=== PATIENT | male | born 1995 | race Caucasian/White ===

== ENCOUNTER 2017-12-29 06:38 | Emergency (ER) | payer BC, MEDICAID, OTHER ==
[~2017-12-29] VITALS: Ht 177.8 cm; Wt 104.3 kg
[2017-12-29] MEDS ORDERED: PROMETHAZINE HCL 25 MG/ML 1ML IV ONE (07:00)
[2017-12-29] MEDS ORDERED: SODIUM CHLORIDE 0.9% 1,000 ML IV ONE ×2 (07:00→10:29)
[2017-12-29 07:15] VITALS: BP 135/78
[2017-12-29 07:26] LABS: Basophils # (auto) 0 uL; Eosinophils # (auto) 0 uL; Hematocrit 53.4 % (41.0-53.0); Hemoglobin 18.9 g/dL (13.5-17.5); Lymphocytes # (auto) 0.4 uL; Mean Corpuscular Hemoglobin 30.6 pg (28.0-32.0); Monocytes # (auto) 0.6 uL; Neutrophils # (auto) 9.5 uL; Red Cell Distribution Width 13.2 % (11.8-14.3)
[2017-12-29 07:29] LABS: Basophils % (auto) 0.3 % (0.0-2.0); Eosinophils % (auto) 0.2 % (0.0-7.0); Lymphocytes % (auto) 3.9 % (10.0-50.0); Mean Corpuscular Hgb Conc. 35.4 g/dL (32.0-36.0); Mean Corpuscular Volume 86.4 fL (80.0-100.0); Monocytes % (auto) 5.2 % (0.0-12.0); Neutrophils % (auto) 90.4 % (37.0-80.0); Nucleated Red Blood Cells % 0.5 %; Platelet Count (auto) 270 10^3/uL (140-450); Red Blood Cells 6.18 10^6/uL (4.5-5.90); White Blood Cell 10.5 10^3/uL (4.4-10.8)
[2017-12-29 07:35] LABS: Albumin 4.8 g/dL (3.4-5.0); BUN/Creatinine Ratio 12.2; Calcium 9.6 mg/dL (8.5-10.1); Potassium 4.3 mmol/L (3.5-5.1)
[2017-12-29 07:38] LABS: Bilirubin, Total 1.5 mg/dL (0.2-1.0)
[2017-12-29 07:47] LABS: INR 1.11 (0.9-1.15); Partial Thromboplastin Time 27.5 sec (23.78-33.04); Prothrombin Time 11.8 sec (9.27-12.13)
[2017-12-29] MEDS ORDERED: KETOROLAC TROMETH 30 MG/ML 1ML VIAL IV ONE (08:15)
[2017-12-29 10:11] LABS: Urine Bacteria NONE SEEN /hpf (None Seen); Urine Blood Negative /uL (Negative); Urine Mucus FEW (None Seen); Urine Specific Gravity 1.029 (1.001-1.035); Urine WBC 3 /hpf (0 - 3)
[2017-12-29 10:20] LABS: Amphetamine Screen, Urine NEGATIVE (NEGATIVE); Barbiturate Scree,Urine NEGATIVE (NEGATIVE); Benzodiazephine Screen, Urine NEGATIVE (NEGATIVE); Cannabinoid Screen, Urine NEGATIVE (NEGATIVE); Cocaine Screen, Urine NEGATIVE (NEGATIVE); Opiate Scree,Urine NEGATIVE (NEGATIVE); Phencyclidine Screen, Urine NEGATIVE (NEGATIVE)
== END 2017-12-29 11:51 | disposition home or self-care (01) ==
LOC: ER 06:38
DX: K52.9 Noninfective gastroenteritis and colitis, unspecified (principal)
CPT/HCPCS: 36415; 74176; 80053; 80307; 81001; 82150; 83690; 85025; 85610; 85730; 93005; 96361; 96374; 96375; 99285; J1885; J2550

== ENCOUNTER 2023-02-21 08:46 | Emergency (ER) | payer SELFPAY ==
[~2023-02-21] VITALS: Ht 180.3 cm; Wt 110.0 kg
[2023-02-21 09:03] VITALS: BP 139/96; PULSE 74; RESP 18; TEMP 97.3; O2SAT 98
[2023-02-21] MEDS ORDERED: HUR60 MT (09:13)
[2023-02-21] MEDS ORDERED: CLIN-203 PO (09:13)
== END 2023-02-21 09:31 | disposition home or self-care (01) ==
LOC: ER 08:46
DX: K04.7 Periapical abscess without sinus (principal); Z79.899 Other long term (current) drug therapy